=== PATIENT | female | born 1955 | race Caucasian/White ===

== ENCOUNTER 2018-09-16 14:39 | Observation (INO) ==
[2018-09-16] MEDS ORDERED: *HR* Dextrose 50 % in Water (Vial) 50 ML VIAL ONE (14:57)
[2018-09-16] MEDS ORDERED: *HR* Dextrose 50 % in Water (Syg) 50 ML SYRINGE IVP ONE (15:00)
--- NOTE | 2018-09-16 15:00 | Emergency Department Note ---
Disposition Clinical Impression: Hypoglycemia Disposition: Admitted As Inpatient Condition: Fair Time of Disposition: 16:56 Weakness HPI - General Chief complaint: ED General Medical Stated complaint: LOW GLUCOSE Time Seen by Provider: 09/16/18 14:45 Source: patient, family, EMS Mode of arrival: EMS Limitations: no limitations Nursing Notes Reviewed: Yes Vital Signs Reviewed: Yes - History of Present Illness HPI Narrative: 63 y/o female hx of diabetes and cva who had been found this am with snorus respers by family and then when checked again later in the am still unresponsive and family called the squad for a possible stroke due to prior history of one . ems on arrival found pt with a glucse of 27 family had tried to give her syrup to wake up ems then gave oral glucose and pt then started to wake up repeat accu check shows glucose of 180 and then she was awake and talking and using full extremities but weak pt transported to er with sugar slowly following pt sleepy but arousable talks about taking 20 units of insulin but didnt eat. pt tells of prior stroke and as a result she said family probably sent her in 10 family memebers here and pt currently being treated for bronchitis type of infection All systems othrwise reviewed and negative. Pt Subjective Complaint: generalized weakness/fatigue, other (snorus respers and not awaking) Onset (ago): hour(s) Duration: constant, gradually worsening Location: generalized Migration: none Pain Severity: none If pain, quality: numbness Improves with: none Worsens with: none Context: new medication, recent illness Associated symptoms: Reports: confusion, diaphoresis, loss of appetite, shortness of breath. Denies: chest pain, dark stools, dysuria, easy bruising, fever/chills, headaches, nausea/vomiting, myalgias, rash, syncope - Related Data Home Medications Medication Instructions Recorded Confirmed Aspirin Enteric Coated [Aspirin EC] 81 mg PO DAILY 09/16/18 09/16/18 Atorvastatin [Lipitor] 40 mg PO HS 09/16/18 09/16/18 BuPROPion [Wellbutrin] 150 mg PO DAILY 09/16/18 09/16/18 Clopidogrel [Plavix] 75 mg PO DAILY 09/16/18 09/16/18 Furosemide [Lasix] 40 mg PO DAILY 09/16/18 09/16/18 HYDROcodone/Acet 10/325 mg [[place] 1 tab PO Q6HR PRN 09/16/18 09/16/18 10-325 mg] Insulin ASPART [Novolog Flexpen] 50 unit SQ BID 09/16/18 09/16/18 Insulin Glargine,Hum.rec.anlog 15 unit SQ HS 09/16/18 09/16/18 [Lantus Solostar] RX: Amlodipine Besylate 10 mg PO DAILY 09/16/18 09/16/18 RX: Carvedilol 3.125 mg PO BID 09/16/18 09/16/18 RX: Lisinopril [Zestril] 20 mg PO DAILY 09/16/18 09/16/18 Sertraline [Zoloft] 50 mg PO DAILY 09/16/18 09/16/18 Allergies Allergy/AdvReac Type Severity Reaction Status Date / Time ibuprofen Allergy See Verified 04/24/17 15:40 Comments Iodinated Contrast- Oral and Allergy Hives Verified 09/16/18 18:08 IV Dye All systems ED: reviewed and negative except as stated. Review of Systems: As Per HPI Constitutional: Reports: weakness. Denies: fever, chills Eyes: Denies: eye pain, eye discharge ENT ED: Denies: ear pain, throat pain Cardiovascular: Denies: chest pain, palpitations Respiratory: Denies: cough, dyspnea, wheezes Gastrointestinal: Denies: abdominal pain, nausea, vomiting Genitourinary: Denies: urgency, dysuria Musculoskeletal: Denies: back pain, neck pain Integumentary: Denies: rash, abrasion, lesions Neurological: Reports: weakness, confusion. Denies: headache Psychiatric: Denies: anxiety, depression Endocrine: Reports: fatigue Hematological/Lymphatic: Denies: easy bleeding, easy bruising Allergic/Immunologic: Denies: facial swelling, urticaria Past Medical History - Past Medical History Attestation: Yes The following information was validated with the patient. Source: patient, old records reviewed, nursing notes reviewed Medical history: Reports: coronary artery disease, CVA, diabetes, hyperlipidemia, hypertension Surgical history: Reports: hysterectomy Psychiatric history: Reports: no psych history - Social History Smoking Status: Former smoker Smokeless Tobacco Status: No Alcohol use: Reports: none Drug use: Reports: none Physical Exam - General Limitations: altered mental status (improved post glucose) General appearance: alert, lethargic, obese - Head Head exam: atraumatic, normocephalic, normal inspection - Eye Eye exam: Present: normal appearance, PERRL, EOMI - ENT ENT exam: normal exam, normal oropharynx, mucous membranes moist, TM's normal bilaterally, normal external ear exam - Neck Neck exam: Present: normal inspection, full ROM, trachea midline - Chest Chest inspection: Present: normal inspection, symmetric chest wall rise - Respiratory Respiratory exam: Present: normal lung sounds bilaterally - Cardiovascular Cardiovascular exam: Present: regular rate, normal rhythm, normal heart sounds - Abdominal Exam Abdominal exam: Present: soft, Non-Tender, normal bowel sounds. Absent: tenderness, distention, guarding, rebound, rigidity, mass, pulsatile mass - Expanded Upper Extremity Exam Shoulder exam: Present: normal inspection, full ROM Arm exam: Present: normal inspection, full ROM Elbow exam: Present: normal inspection, full ROM Forearm/Wrist exam: Present: normal inspection, full ROM Hand exam: Present: normal inspection, full ROM Vascular exam: Normal: capillary refill, radial pulse - Expanded Lower Extremity Exam Hip/Pelvis exam: Present: normal inspection, full ROM Upper leg exam: Present: normal inspection, full ROM Knee exam: Present: normal inspection, full ROM Lower leg exam: Present: normal inspection, full ROM Ankle exam: Present: normal inspection, full ROM Foot/toe exam: Present: normal inspection, full ROM Neurovascular/Tendon exam: Present: normal capillary refill, normal fine/light touch. Absent: motor deficit, sensory deficit, tendon deficit Gait: observed and normal - Back Exam Back exam: Present: normal inspection, full ROM. Absent: muscle spasm - Neurological Exam Neurological exam: Present: alert, oriented X3, CN II-XII intact, normal gait - Psychiatric Psychiatric exam: Present: normal affect, normal mood - Skin Skin exam: Present: warm, intact, normal color, diaphoresis Course Course Narrative: pt seen and examined and repeat acucheck done since squads report noted to be decreasing and thus given 1 amp of d50 IV and then ordered meal tray pt now completely aake and talking stated currently being treated for URI possible source for event No Other complaints and almost back to baseline and still having trending down in glucose Vital Signs Temperature 97.4 F L 09/16/18 14:41 Pulse Rate 68 09/16/18 14:41 Respiratory Rate 18 09/16/18 14:41 Blood Pressure 137/60 09/16/18 14:41 O2 Sat by Pulse Oximetry 91 09/16/18 14:41 Temperature 98.5 F 09/16/18 22:26 Pulse Rate 80 09/16/18 22:26 Respiratory Rate 18 09/16/18 22:26 Blood Pressure 138/65 09/16/18 22:26 O2 Sat by Pulse Oximetry 90 09/16/18 22:26 Oxygen Delivery Oxygen Delivery Room Air Weakness - Differential Diagnosis Differential Diagnosis: Likely: dehydration, medication effect, stroke, metabolic, thyroid/endocrine disorder - Medical Records Medical records reviewed: Yes I reviewed the patient's medical records. - Lab Data Lab results reviewed: Yes I reviewed the patient's lab results. Result diagrams: 09/16/18 15:22 09/16/18 15:22 Lab Results 09/16/18 09/16/18 09/16/18 Range/Units 15:22 15:22 15:22 WBC 15.2 H (4.3-11.1) K/mcL RBC 4.35 (3.82-4.97) M/mcL Hgb 13.8 (11.5-15.4) g/dL Hct 41.7 (35.3-44.9) % MCV 95.9 (83.0-100.0) fL MCH 31.7 (28.0-33.3) pg MCHC 33.1 (31.6-35.5) g/dL RDW 13.6 (11.5-14.5) % Plt Count 435 H (140-400) K/mcL MPV 8.9 L (9.4-12.4) fL Immature Gran % 0.5 (0-4) % Seg Neutrophils % 78.4 % Lymphocytes % 13.4 % Monocytes % 6.2 % Eosinophils % 1.1 % Basophils % 0.4 % Neutrophils # 11.9 H (1.6-8.9) K/mcL Lymphocytes # 2.0 (0.6-4.6) K/mcL Monocytes # 0.9 (0.0-1.3) K/mcL Eosinophils # 0.2 (0.0-0.6) K/mcL Basophils # 0.1 (0.0-0.2) K/mcL PT 13.3 H (9.4-12.1) Seconds INR 1.2 APTT 33.6 (26.0-36.0) Seconds Sodium 141 (136-145) mEq/L Potassium 3.2 L (3.5-5.1) mEq/L Chloride 101 (98-107) mEq/L Carbon Dioxide 33 H (23-29) mEq/L BUN 16 (8-23) mg/dL Creatinine 0.66 (0.60-1.20) mg/dL Est GFR ( Amer) > 60 (> 60) Est GFR (Non-Af Amer) > 60 (> 60) BUN/Creatinine Ratio 24 (6-26) Glucose 169 H (70-105) mg/dL Calculated Osmolality 297 (280-300) Calcium 9.0 (8.6-10.3) mg/dL - Radiology Data Radiology results reviewed: Yes I reviewed the patient's radiology results. ITS Impressions Chest X-Ray 09/16/18 15:05 IMPRESSION: Minimal bibasilar atelectasis. D/ / 09/16/2018 16:20:46 Bautista Ricks MD / Myrna Guillermo Interpreting Provider: Bautista Ricks MD Head CT 09/16/18 15:05 IMPRESSION: 1. No acute intracranial hemorrhage or global mass effect. 2. Evidence of chronic microvascular ischemic disease and remote left occipital infarct. D/ / 09/16/2018 16:21:41 Ankush Maynard MD / Myrna Guillermo Interpreting Provider: Ankush Maynard MD Critical Care Time Critical Care Time: No
[2018-09-16 15:29] LABS: Basophils # 0.1 K/mcL (0.0-0.2); Basophils % 0.4 %; Eosinophils # 0.2 K/mcL (0.0-0.6); Eosinophils % 1.1 %; Hematocrit 41.7 % (35.3-44.9); Hemoglobin 13.8 g/dL (11.5-15.4); Immature Granulocytes % 0.5 % (0-4); Lymphocytes % 13.4 %; Mean Corpuscular HGB Conc 33.1 g/dL (31.6-35.5); Mean Corpuscular Hemoglobin 31.7 pg (28.0-33.3); Mean Corpuscular Volume 95.9 fL (83.0-100.0); Mean Platelet Volume 8.9 fL (9.4-12.4); Monocytes # 0.9 K/mcL (0.0-1.3); Monocytes % 6.2 %; Platelet Count 435 K/mcL (140-400); Red Blood Count 4.35 M/mcL (3.82-4.97); Red Cell Distribution Width 13.6 % (11.5-14.5); Segmented Neutrophils % 78.4 %
[2018-09-16 15:30] LABS: Neutrophils # 11.9 K/mcL (1.6-8.9)
[2018-09-16 15:43] LABS: INR 1.2; Prothrombin Time 13.3 Seconds (9.4-12.1)
[2018-09-16 15:45] LABS: Activated Partial Thrombo Time 33.6 Seconds (26.0-36.0)
[2018-09-16 15:50] LABS: BUN/Creatinine Ratio 24 (6-26); Blood Urea Nitrogen 16 mg/dL (8-23); Carbon Dioxide 33 mEq/L (23-29); Chloride 101 mEq/L (98-107); Glucose 169 mg/dL (70-105); Osmolality,Calculated 297 (280-300); Potassium 3.2 mEq/L (3.5-5.1); Sodium 141 mEq/L (136-145); eGFR For Non-African Americans > 60 (> 60)
[2018-09-16] MEDS ORDERED: *HR* HYDROcodone/Acet 10/325 mg TABLET PO PRN (17:13)
[2018-09-16] MEDS ORDERED: Naloxone 0.4 MG/ML INJ IVP PRN (17:13)
[2018-09-16] MEDS ORDERED: *HR* Dextrose 50 % in Water (Vial) 50 ML VIAL IVP PRN (17:13)
[2018-09-16] MEDS ORDERED: Dextrose Gel 15 GM/37.5 ML TUBE PO PRN ×2 (17:13)
[2018-09-16] MEDS ORDERED: D5% in Water 1,000 ML IVC PRN (17:13)
[2018-09-16] MEDS ORDERED: Insulin LISPRO 300 UNITS/3 ML VIAL SQ SCH (18:00)
[2018-09-16] MEDS ORDERED: Insulin LISPRO 300 UNITS/3 ML VIAL SQ ONE (20:47)
[2018-09-16] MEDS ORDERED: NON-FORMULARY MEDICATION 1 EACH EACH (Carvedilol [Carvedilol] 3.125 MG) PO SCH (21:00)
[2018-09-16] MEDS ORDERED: Insulin DETEMIR 100 UNIT/ML X5UNITS SQ SCH (21:00)
[2018-09-17 05:54] LABS: Basophils # 0.1 K/mcL (0.0-0.2); Basophils % 0.4 %; Eosinophils # 0.4 K/mcL (0.0-0.6); Eosinophils % 2.8 %; Hematocrit 38.7 % (35.3-44.9); Hemoglobin 12.9 g/dL (11.5-15.4); Immature Granulocytes % 0.5 % (0-4); Lymphocytes # 3.8 K/mcL (0.6-4.6); Lymphocytes % 24.3 %; Mean Corpuscular HGB Conc 33.3 g/dL (31.6-35.5); Mean Corpuscular Hemoglobin 31.7 pg (28.0-33.3); Mean Corpuscular Volume 95.1 fL (83.0-100.0); Mean Platelet Volume 9.2 fL (9.4-12.4); Monocytes # 1.6 K/mcL (0.0-1.3); Monocytes % 9.8 %; Neutrophils # 9.8 K/mcL (1.6-8.9); Platelet Count 441 K/mcL (140-400); Red Blood Count 4.07 M/mcL (3.82-4.97); Red Cell Distribution Width 13.7 % (11.5-14.5); Segmented Neutrophils % 62.2 %
[2018-09-17 06:14] LABS: BUN/Creatinine Ratio 28 (6-26); Blood Urea Nitrogen 16 mg/dL (8-23); Calcium 8.8 mg/dL (8.6-10.3); Carbon Dioxide 31 mEq/L (23-29); Chloride 103 mEq/L (98-107); Glucose 92 mg/dL (70-105); Osmolality,Calculated 293 (280-300); Potassium 3.1 mEq/L (3.5-5.1); Sodium 141 mEq/L (136-145); eGFR For Non-African Americans > 60 (> 60)
[2018-09-17] MEDS: Insulin LISPRO 300 UNITS/3 ML VIAL SQ SCH ×2 (07:19→12:43)
[2018-09-17 08:45] VITALS: BP 129/68
[2018-09-17] MEDS ORDERED: Furosemide 40 MG TABLET PO SCH (09:00)
[2018-09-17] MEDS ORDERED: Aspirin Enteric Coated 81 MG Tablet PO SCH (09:00)
[2018-09-17] MEDS ORDERED: NON-FORMULARY MEDICATION 1 EACH EACH (Amlodipine Besylate [Amlodipine Besylate] 10 MG) PO SCH (09:00)
[2018-09-17] MEDS ORDERED: amLODIPine 5 MG TABLET PO SCH (09:00)
[2018-09-17] MEDS ORDERED: Lisinopril 20 MG TABLET PO SCH (09:00)
[2018-09-17 09:35] LABS: Estimated Average Glucose 154 mg/dl
--- NOTE | 2018-09-17 11:47 | Internal Med History&Physical ---
Date of Encounter: 09/17/18 Time of Encounter: 11:10 Assessment and Plan (1) Hypoglycemia Current visit: Yes Status: Acute Now resolved. Likely due to delayed food ingestion relative to timing of insulin dose. (2) Hypertension Current visit: Yes Status: Chronic Continue lisinopril, Coreg, and amlodipine Qualifiers: Hypertension type: essential hypertension Qualified Code(s): I10 - Essential (primary) hypertension (3) Hypokalemia Current visit: Yes Status: Acute She has KCl at home but has not been taking it. Internal Medicine - H&P: HPI Chief complaint: Hypoglycemia Admitted From: Emergency Dept Plans for Post Hospital Care: Home History of present illness: Ms. Cleaning is a 63 year old female who came to emergency room after developing hypoglycemia at home. She awakened at usual time and took her usual dose of 50 units NovoLog. She anticipated soon having breakfast that was being supplied by a family member. The family member did not arrive with breakfast until 3 hours later. The patient was found by family to be unresponsive. Glucose level was 27. Patient was aroused enough to drink maple syrup. EMS was called and gave oral glucose. She was brought to emergency room and evaluated and showed fluctuating blood sugars. She was admitted to [facility] floor for ongoing care needs. She reports being diagnosed with DM 2 approximately 2009. She checks her blood sugars twice daily at home with the lowest one in several weeks being 109 MG/DL. She has had no recent changes in her metformin, Lantus, h or r NovoLog. Endocrine history is negative for known thyroid disease or hyperlipidemia. She states she feels back to her baseline now and wishes to be discharged home. Past Med Surg Social Fam HX - Past Medical History Medical history: coronary artery disease, CVA, diabetes, hyperlipidemia, hypertension Psychiatric history: no psych history - Past Surgical History Surgical History: hysterectomy Additional surgical history: Triple Bypass - Social History Smoking Status: Former smoker Packs per day: 1 Smokeless Tobacco Status: No Alcohol use: none Drug use: none Internal Medicine - H&P: Meds Amlodipine Besylate 10 mg PO DAILY 09/16/18 [History] Aspirin Enteric Coated [Aspirin EC] 81 mg PO DAILY 09/16/18 [History] Atorvastatin [Lipitor] 40 mg PO HS 09/16/18 [History] BuPROPion [Wellbutrin] 150 mg PO DAILY 09/16/18 [History] Carvedilol 3.125 mg PO BID 09/16/18 [History] Clopidogrel [Plavix] 75 mg PO DAILY 09/16/18 [History] Furosemide [Lasix] 40 mg PO DAILY 09/16/18 [History] HYDROcodone/Acet 10/325 mg [[place] 10-325 mg] 1 tab PO Q6HR PRN 09/16/18 [History] Insulin ASPART [Novolog Flexpen] 50 unit SQ BID 09/16/18 [History] Insulin Glargine,Hum.rec.anlog [Lantus Solostar] 15 unit SQ HS 09/16/18 [History] Lisinopril [Zestril] 20 mg PO DAILY 09/16/18 [History] Sertraline [Zoloft] 50 mg PO DAILY 09/16/18 [History] Allergy/AdvReac Type Severity Reaction Status Date / Time ibuprofen Allergy See Verified 04/24/17 15:40 Comments Iodinated Contrast- Oral and Allergy Hives Verified 09/16/18 18:08 IV Dye All Systems PM: A 10-system review of systems was performed and is negative for pertinent findings except as documented above in the HPI. Review of systems: Gen.: She states her weight has been stable for several months Cardiovascular: She has history of hypertension and known ASHD status post 3 vessel CABG in 2016. She denies IA heart failure DVT or pulmonary embolus. She denies stress test or heart catheter since the CABG surgery. Respiratory: She has smoked since age 14 up to 3 packs per day. She reports PFTs 2016 at [facility] did not show chronic lung disease. She does not use home oxygen. GI: She denies disorders of her liver gallbladder or exocrine pancreas : She denies hematuria dysuria or kidney stones Neurologic: She had CVA January 2017 leaving her with right arm and leg weakness. She denies seizures Endocrine: As per history of present illness Hematology/oncology: She denies blood disorders cancers or anemia Psychiatric: She denies anxiety depression or other mental health issues [place] skeletal: She denies arthritis gout or other bone joint or muscle disorders. - Constitutional Vitals: Temp Pulse Resp BP Pulse Ox 98.8 F 99 18 129/68 93 09/17/18 07:06 09/17/18 08:44 09/17/18 07:06 09/17/18 08:44 09/17/18 07:06 Exam: Gen.: She is a well-developed obese female sitting on the side of bed who appears in no acute distress HEENT: Head is atraumatic and normocephalic. Eyes: EOMI. There is no scleral icterus. Mouth: Mucosa is moist. Neck: Supple and nontender. There is no thyromegaly or adenopathy noted. Heart: Regular with a 2/6 systolic murmur heard at the left sternal border and base. No gallops or ectopics are heard. Lungs: No wheezes or crackles are heard. Abdomen: She has a large abdomen. It is nontender to palpation. Extremities: There is no cyanosis edema or clubbing noted. Dorsalis pedis and posterior tibial pulses are trace palpable bilaterally. Neurologic: Mental status: She is talkative and a good historian. Cranial nerves: Smile is symmetric. Forehead wrinkles bilaterally. Tongue protrudes midline. EOMI. Motor: She cannot pronate her right arm well. Left arm pronates normally. There is no pronator drift with the left arm. Cerebellar: Finger to nose is intact bilaterally. Skin: Warm and dry Internal Med - H&P Results - Labs CBC & Chem 7: 09/17/18 05:00 09/17/18 05:00 Labs: Short CBC 09/16/18 09/17/18 Range/Units 15:22 05:00 WBC 15.2 H 15.8 H (4.3-11.1) K/mcL Hgb 13.8 12.9 (11.5-15.4) g/dL Hct 41.7 38.7 (35.3-44.9) % Plt Count 435 H 441 H (140-400) K/mcL Neutrophils # 11.9 H 9.8 H (1.6-8.9) K/mcL BMP 09/16/18 09/17/18 15:22 05:00 Sodium 141 141 Potassium 3.2 L 3.1 L Chloride 101 103 Carbon Dioxide 33 H 31 H BUN 16 16 Creatinine 0.66 0.57 L Glucose 169 H 92 Calcium 9.0 8.8 - Impressions ITS Impressions Chest X-Ray 09/16/18 15:05 IMPRESSION: Minimal bibasilar atelectasis. D/ / 09/16/2018 16:20:46 Bautista Ricks MD / Myrna Guillermo Interpreting Provider: Bautista Ricks MD Head CT 09/16/18 15:05 IMPRESSION: 1. No acute intracranial hemorrhage or global mass effect. 2. Evidence of chronic microvascular ischemic disease and remote left occipital infarct. D/ / 09/16/2018 16:21:41 Ankush Maynard MD / Myrna Guillermo Interpreting Provider: Ankush Maynard MD
--- NOTE | 2018-09-17 11:58 | Discharge Summary ---
Date of Encounter: 09/17/18 Time of Encounter: 11:10 - Discharge Diagnosis (1) Hypoglycemia Priority: Primary Status: Resolved (2) Hypertension Priority: Secondary Status: Chronic Qualifiers: Hypertension type: essential hypertension Qualified Code(s): I10 - Essential (primary) hypertension (3) Hypokalemia Priority: Secondary Status: Acute Hospital course: Ms. Cleaning is a 63 year old female who came to emergency room after developing hypoglycemia at home. She awakened at usual time and took her usual dose of 50 units NovoLog. She anticipated soon having breakfast that was being supplied by a family member. The family member did not arrive with breakfast until 3 hours later. The patient was found by family to be unresponsive. Glucose level was 27. Patient was aroused enough to drink maple syrup. EMS was called and gave oral glucose. She was brought to emergency room and evaluated and showed fluctuating blood sugars. She was admitted to [facility] floor for ongoing care needs. Initial orders were written by the emergency room physician. I saw her the morning of September 17 and performed a history physical and discharge. By the time I saw her she felt back to her baseline and wished to be discharged home. Blood sugars had returned to satisfactory range. I instructed her not to allow significant time lapse from administration of short-acting insulin until food consumption. Hemoglobin A1c returned satisfactory 7.0%. Supplemental KCl 40 mEq was given prior to discharge. I instructed her to use KCl 10 mEq daily as previously prescribed. Room air oximetry will be checked on 6 minute walk part of discharge. I encouraged her to become a nonsmoker. She will follow with her PCP within 1 week. - Time Spent with Patient Total time spent providing and/or coordinating discharge services: - Discharge Medications Prescriptions: Continue Insulin Glargine,Hum.rec.anlog [Lantus Solostar] 15 unit SQ HS Amlodipine Besylate 10 mg PO DAILY Sertraline [Zoloft] 50 mg PO DAILY Carvedilol 3.125 mg PO BID BuPROPion [Wellbutrin] 150 mg PO DAILY Aspirin Enteric Coated [Aspirin EC] 81 mg PO DAILY Clopidogrel [Plavix] 75 mg PO DAILY Atorvastatin [Lipitor] 40 mg PO HS Lisinopril [Zestril] 20 mg PO DAILY Furosemide [Lasix] 40 mg PO DAILY Insulin ASPART [Novolog Flexpen] 50 unit SQ BID HYDROcodone/Acet 10/325 mg [[place] 10-325 mg] 1 tab PO Q6HR PRN PRN Reason: Pain Home Medications: Amlodipine Besylate 10 mg PO DAILY 09/16/18 [History] Aspirin Enteric Coated [Aspirin EC] 81 mg PO DAILY 09/16/18 [History] Atorvastatin [Lipitor] 40 mg PO HS 09/16/18 [History] BuPROPion [Wellbutrin] 150 mg PO DAILY 09/16/18 [History] Carvedilol 3.125 mg PO BID 09/16/18 [History] Clopidogrel [Plavix] 75 mg PO DAILY 09/16/18 [History] Furosemide [Lasix] 40 mg PO DAILY 09/16/18 [History] HYDROcodone/Acet 10/325 mg [[place] 10-325 mg] 1 tab PO Q6HR PRN 09/16/18 [History] Insulin ASPART [Novolog Flexpen] 50 unit SQ BID 09/16/18 [History] Insulin Glargine,Hum.rec.anlog [Lantus Solostar] 15 unit SQ HS 09/16/18 [History] Lisinopril [Zestril] 20 mg PO DAILY 09/16/18 [History] Sertraline [Zoloft] 50 mg PO DAILY 09/16/18 [History] Allergies/Adverse Reactions: Allergy/AdvReac Type Severity Reaction Status Date / Time ibuprofen Allergy See Verified 04/24/17 15:40 Comments Iodinated Contrast- Oral and Allergy Hives Verified 09/16/18 18:08 IV Dye Date of admission: 09/16/18 17:02 Primary care physician: Jordy Solorzano - Constitutional Vitals: Temp Pulse Resp BP Pulse Ox 98.8 F 99 18 129/68 93 09/17/18 07:06 09/17/18 08:44 09/17/18 07:06 09/17/18 08:44 09/17/18 07:06 - Patient Status Disposition: Home, Self-Care Condition: Fair - Discharge Instructions Follow Up With: Jordy Solorzano DO [Primary Care Provider] - 1 week - Diet and Activity Activity: resume usual activities as tolerated Diet: diabetic diet
[2018-09-17] MEDS ORDERED: Potassium Chloride Elixir 20 MEQ/15 ML UDC PO ONE (12:51)
== END 2018-09-17 14:42 | disposition home or self-care (01) ==
LOC: INPPIK 14:39 → EMEROOPIK 14:39 → INPPIK 17:40
PROVIDERS: ADMIT Internal Medicine; ATTEND Internal Medicine